=== PATIENT | male | born 1985 | race Hispanic/Latino ===

== ENCOUNTER 2018-10-11 20:44 | Emergency (ER) | payer OTHER ==
[2018-10-11] MEDS ORDERED: FENTANYL CITR 100 MCG/2 ML ONE (21:29)
[2018-10-11] MEDS ORDERED: ONDANSETRON 4 MG/2 ML VIAL ONE (21:30)
[2018-10-11] MEDS ORDERED: KETOROLAC 30 MG/ML INJ ONE (21:30)
--- NOTE | 2018-10-11 21:58 | ER ---
Nurse's Notes [facility] Name: Mika Wallace Age: 33 yrs Sex: Male : 1985 Arrival Date: 10/11/2018 Time: 20:51 Bed 14 Private MD: Diagnosis: Fracture of shaft of fibula-Distal Left Presentation: 10/11 20:57 Presenting complaint: Patient states: Pain to left ankle after landing wrong playing lp1 soccer tonight; unable to bear weight. Transition of care: patient was not received from another setting of care. Onset of symptoms was October 11, 2018 at 20:00. Risk Assessment: Do you want to hurt yourself or someone else? Patient reports no desire to harm self or others. Initial Sepsis Screen: Does the patient meet any 2 criteria? No. Patient's initial sepsis screen is negative. Does the patient have a suspected source of infection? No. Patient's initial sepsis screen is negative. Care prior to arrival: None. 20:57 Method Of Arrival: Wheelchair lp1 20:57 Acuity: RAFY 4 lp1 Triage Assessment: 21:05 General: Appears in no apparent distress. uncomfortable, Behavior is calm, cooperative, cc3 appropriate for age. Pain: Complains of pain in left leg, left ankle. Pain: Quality of pain is described as aching. Musculoskeletal: Circulation, motion, and sensation intact. Range of motion: limited in left leg, left ankle. Historical: - Allergies: 20:58 No Known Allergies; lp1 - Home Meds: 20:58 None [Active]; lp1 - PMHx: 20:58 None; lp1 - PSHx: 20:58 None; lp1 - Immunization history:: Adult Immunizations up to date. - Social history:: Smoking status: Patient/guardian denies using tobacco. - Ebola Screening: : No symptoms or risks identified at this time. Screenin:05 Abuse screen: Denies threats or abuse. Denies injuries from another. Nutritional cc3 screening: No deficits noted. Tuberculosis screening: No symptoms or risk factors identified. Fall Risk Ambulatory Aid- None/Bed Rest/Nurse Assist (0 pts). Gait- Impaired (20 pts.). Mental Status- Oriented to own ability (0 pts). Assessment: 21:05 General: see triage assessment.. cc3 22:50 Reassessment: Patient appears in no apparent distress at this time. Patient and/or cc3 family updated on plan of care and expected duration. Pain level reassessed. Patient is alert, oriented x 3, equal unlabored respirations, skin warm/dry/pink. DALTON Hsu discharged the patient home with prescription given. IV cannula removed and patient left ER vitally stable by wheelchair with his family. Patient states feeling better. Patient states symptoms have improved. Vital Signs: 20:58 BP 105 / 67; Pulse 83; Resp 16; Temp 97.1(TE); Pulse Ox 99% on R/A; Weight 81.65 kg; lp1 Height 5 ft. 7 in. (170.18 cm); Pain 10/10; 21:45 BP 102 / 56; Pulse 83; Resp 18 S; Pulse Ox 97% on R/A; cc3 22:20 BP 103 / 57; Pulse 85; Resp 16 S; Pulse Ox 99% on R/A; cc3 20:58 Body Mass Index 28.19 (81.65 kg, 170.18 cm) lp1 ED Course: 20:51 Patient arrived in ED. es 20:57 Triage completed. lp1 20:58 Arm band placed on left wrist. lp1 21:03 Yola Peck is Primary Nurse. cc3 21:04 Gilbert Hsu PA is PHCP. cp 21:04 Gilbert Jamil MD is Attending Physician. cp 21:05 Patient has correct armband on for positive identification. Bed in low position. Call cc3 light in reach. Side rails up X 1. Pulse ox on. NIBP on. 21:08 Inserted saline lock: 20 gauge in right antecubital area, using aseptic technique. mw2 Blood collected. 21:21 Ankle Left 3 View XRAY In Process Unspecified. EDMS 21:57 Gustavo Caceres MD is Referral Physician. cp 22:50 No provider procedures requiring assistance completed. IV discontinued, intact, cc3 bleeding controlled, No redness/swelling at site. Pressure dressing applied. Administered Medications: 21:20 Drug: fentaNYL (PF) 25 mcg Route: IVP; Site: right antecubital; cc3 22:00 Follow up: Response: No adverse reaction; Pain is decreased cc3 21:23 Drug: TORadol 30 mg Route: IVP; Site: right antecubital; cc3 22:00 Follow up: Response: No adverse reaction; Pain is decreased cc3 21:27 Drug: Zofran 4 mg Route: IVP; Site: right antecubital; cc3 22:00 Follow up: Response: No adverse reaction; Nausea is decreased cc3 21:50 Drug: HYDROcodone-acetaminophen 5 mg-325 mg 1 tabs Route: PO; cc3 22:50 Follow up: Response: No adverse reaction; Pain is decreased cc3 Outcome: 21:58 Discharge ordered by MD. leonard 22:50 Discharged to home ambulatory, with family. cc3 22:50 Condition: stable 22:50 Discharge instructions given to patient, family, Instructed on discharge instructions, follow up and referral plans. medication usage, Demonstrated understanding of instructions, follow-up care, medications, Prescriptions given X 2. 23:02 Patient left the ED. cc3 Signatures: Dispatcher [employer] Christy Adame Laura RN RN lp1 Gilbert Hsu PA PA cp [place], MyKena mw2 Yola Peck cc3
--- NOTE | 2018-10-11 21:58 | EDPHYS ---
Physician Documentation [facility] Name: Mika Wlalace Age: 33 yrs Sex: Male : 1985 Arrival Date: 10/11/2018 Time: 20:51 Bed 14 Private MD: HARRIETT Physician Gilbert Jamil HPI: 10/11 21:10 This 33 yrs old Male presents to ER via Wheelchair with complaints of Ankle cp Injury. 21:10 The patient presents with an injury, pain, that is acute. The complaints affect the cp left ankle. Onset: The symptoms/episode began/occurred just prior to arrival. Context: The problem was sustained at a sports field or court, The patient is unable to bear weight. Associated signs and symptoms: Pertinent negatives: numbness. Historical: - Allergies: 20:58 No Known Allergies; lp1 - Home Meds: 20:58 None [Active]; lp1 - PMHx: 20:58 None; lp1 - PSHx: 20:58 None; lp1 - Immunization history:: Adult Immunizations up to date. - Social history:: Smoking status: Patient/guardian denies using tobacco. - Ebola Screening: : No symptoms or risks identified at this time. ROS: 21:15 Constitutional: Negative for body aches, chills, poor PO intake. cp 21:15 Eyes: Negative for injury, pain, redness, and discharge. cp 21:15 ENT: Negative for drainage from ear(s), ear pain, sore throat, difficulty swallowing, difficulty handling secretions. 21:15 Neck: Negative for pain with movement, pain at rest, stiffness. 21:15 Cardiovascular: Negative for chest pain. 21:15 Respiratory: Negative for cough, shortness of breath, wheezing. 21:15 Abdomen/GI: Negative for abdominal pain. 21:15 Back: Negative for pain at rest, pain with movement. 21:15 MS/extremity: Positive for decreased range of motion, pain, tenderness, of the left lateral distal fibula and ankle. 21:15 Neuro: Negative for numbness. 21:15 All other systems are negative. Exam: 21:30 Constitutional: The patient appears in no acute distress, alert, awake, non-toxic, well cp developed, well nourished, in obvious pain, uncomfortable. 21:30 Head/Face: Normocephalic, atraumatic. cp 21:30 Eyes: Periorbital structures: appear normal, Conjunctiva: normal, no exudate, no injection, Lids and lashes: appear normal, bilaterally. 21:30 ENT: External ear(s): are unremarkable, Nose: is normal, Mouth: Lips: moist, Oral mucosa: moist, Posterior pharynx: is normal, airway is patent. 21:30 Chest/axilla: Inspection: normal, Palpation: is normal, no crepitus, no tenderness. 21:30 Cardiovascular: Rate: normal, Rhythm: regular. 21:30 Respiratory: the patient does not display signs of respiratory distress, Respirations: normal, no use of accessory muscles, no retractions, no splinting, no tachypnea, labored breathing, is not present, Breath sounds: are clear throughout, no decreased breath sounds, no stridor, no wheezing. 21:30 Abdomen/GI: Exam negative for discomfort, distension, guarding, Inspection: abdomen appears normal. 21:30 Back: pain, is absent, ROM is normal. 21:30 Musculoskeletal/extremity: Extremities: grossly normal except: noted in the left distal fibula and left lateral ankle: pain, swelling, tenderness, Perfusion: the extremity is normally perfused throughout, Sensation intact. 21:30 Skin: intact. Vital Signs: 20:58 BP 105 / 67; Pulse 83; Resp 16; Temp 97.1(TE); Pulse Ox 99% on R/A; Weight 81.65 kg; lp1 Height 5 ft. 7 in. (170.18 cm); Pain 10/10; 21:45 BP 102 / 56; Pulse 83; Resp 18 S; Pulse Ox 97% on R/A; cc3 22:20 BP 103 / 57; Pulse 85; Resp 16 S; Pulse Ox 99% on R/A; cc3 20:58 Body Mass Index 28.19 (81.65 kg, 170.18 cm) lp1 Procedures: 23:00 Splinting: Splint applied to left ankle using Orthoglass splint, applied by tech. cp Examined by ne, post splint application: neurovascular intact, Patient tolerated well. MDM: 21:04 Patient medically screened. cp 21:30 Differential diagnosis: fracture, sprain, dislocation. cp 21:55 Data reviewed: vital signs, nurses notes, radiologic studies, plain films. cp 21:55 Test interpretation: by ED physician or midlevel provider: plain radiologic studies. cp Counseling: I had a detailed discussion with the patient and/or guardian regarding: the historical points, exam findings, and any diagnostic results supporting the discharge/admit diagnosis, radiology results, the need for outpatient follow up, a orthopedic surgeon, to return to the emergency department if symptoms worsen or persist or if there are any questions or concerns that arise at home. Response to treatment: the patient's symptoms have markedly improved after treatment. 10/11 20:57 Order name: Ankle Left 3 View XRAY lp1 10/11 21:34 Order name: Splint: posterior short leg and stirrup type; Complete Time: 23:01 cp 10/11 21:34 Order name: Crutches; Complete Time: 23:01 cp Administered Medications: 21:20 Drug: fentaNYL (PF) 25 mcg Route: IVP; Site: right antecubital; cc3 22:00 Follow up: Response: No adverse reaction; Pain is decreased cc3 21:23 Drug: TORadol 30 mg Route: IVP; Site: right antecubital; cc3 22:00 Follow up: Response: No adverse reaction; Pain is decreased cc3 21:27 Drug: Zofran 4 mg Route: IVP; Site: right antecubital; cc3 22:00 Follow up: Response: No adverse reaction; Nausea is decreased cc3 21:50 Drug: HYDROcodone-acetaminophen 5 mg-325 mg 1 tabs Route: PO; cc3 22:50 Follow up: Response: No adverse reaction; Pain is decreased cc3 Disposition: 10/12 11:15 Co-signature as Attending Physician, Gilbert Jamil MD I agree with the assessment and lorena plan of care. Disposition: 10/11/18 21:58 Discharged to Home. Impression: Fracture of shaft of fibula - Distal Left. - Condition is Stable. - Discharge Instructions: Tibial and Fibular Fracture, Adult. - Prescriptions for Ibuprofen 800 mg Oral Tablet - take 1 tablet by ORAL route every 8 hours As needed take with food; 30 tablet. Tylenol- Codeine #3 300-30 mg Oral Tablet - take 2 tablets by ORAL route every 6 hours As needed; 20 tablet. - Medication Reconciliation Form, Thank You Letter, Antibiotic Education, Prescription Opioid Use form. - Follow up: Gustavo Caceres MD; When: 2 - 3 days; Reason: left distal fibula fracture. - Problem is new. - Symptoms have improved. - Notes: remain non-weight bearing and follow-up with orthopedist Signatures: Dispatcher [employer] EDGilbert Lopez MD MD cha Pena, Laura, RN RN lp1 Gilbert Hsu PA PA cp Cordel, Charlene cc3 Corrections: (The following items were deleted from the chart) 10/11 23:02 21:58 10/11/2018 21:58 Discharged to Home. Impression: Fracture of shaft of fibula - cc3 Distal Left. Condition is Stable. Forms are Medication Reconciliation Form, Thank You Letter, Antibiotic Education, Prescription Opioid Use. Follow up: Dr. Gustavo Caceres; When: 2 - 3 days; Reason: left distal fibula fracture. Problem is new. Symptoms have improved. cp
[2018-10-11] MEDS ORDERED: HYDROCODONE/APAP 5/325 MG TAB ONE (22:07)
--- NOTE | 2018-10-12 08:13 | RAD REPORT ---
EXAM DESCRIPTION: RAD - Ankle Left 3 View - 10/11/2018 9:20 pm CLINICAL HISTORY: PAIN Trauma, pain COMPARISON: No comparisons FINDINGS: Transverse acute fracture is seen involving the distal shaft of the fibula. Moderate soft tissue swelling is evident. Tiny bony fragment seen along distal fibula probably related to prior tra erik.
== END 2018-10-11 23:02 | disposition home or self-care (01) ==
LOC: ER 20:44
PROC: 2W3RX1Z Immobilization of Left Lower Leg using Splint (ICD-10-PCS; principal; 2018-10-11)
DX: S82.832A Other fracture of upper and lower end of left fibula, initial encounter for closed fracture (principal); X58.XXXA Exposure to other specified factors, initial encounter; Y93.9 Activity, unspecified; Y92.39 Other specified sports and athletic area as the place of occurrence of the external cause
CPT/HCPCS: 96374; 96375; 99284; J2405; J3010